=== PATIENT | male | born 1965 | race Caucasian/White ===

== ENCOUNTER 2018-04-11 23:04 | Emergency (ER) | payer BC ==
[2018-04-11] MEDS ORDERED: SODIUM CHLORIDE 1,000 ML IV STA (23:09)
[2018-04-11] MEDS ORDERED: ONDANSETRON 4 MG/2 ML VIAL IVPB ONE (23:09)
[2018-04-11] MEDS ORDERED: ACETAMINOPHEN 1000 MG/100 ML VIAL (NON FORMULARY) IVPB ONE (23:09)
[2018-04-11] MEDS ORDERED: PANTOPRAZOLE SODIUM 40 MG in SODIUM CHLORIDE 100 ML IVPB ONE (23:09)
[2018-04-11 23:20] VITALS: BP 127/77; PULSE 82; TEMP 97.6; BMI 29.7
[2018-04-11] MEDS ORDERED: ACETAMINOPHEN INJECTION 100 ML IVPB ONE (23:21)
[2018-04-11] MEDS ORDERED: ONDANSETRON 4 MG/2 ML VIAL ONE (23:22)
[2018-04-11] MEDS ORDERED: PANTOPRAZOLE SODIUM 40 MG VIAL ONE (23:22)
[2018-04-11 23:28] LABS: HEMATOCRIT 48.2 % (35.4-49); HEMOGLOBIN 16.2 GM/dl (11.7-16.9); MCH 30.7 pg (25.7-33.7); MCHC 33.6 g/dl (32.0-35.9); MEAN CELL VOLUME 91.5 fl (80-96); MEAN PLT VOLUME 7.4 fl (7.5-11.1); PLATELET COUNT 305 K/MM3 (134-434); RBC 5.26 M/mm3 (4.00-5.60); RDW 12.8 % (11.9-15.9); WHITE BLOOD COUNT 14.6 K/mm3 (4.0-10.8)
--- NOTE | 2018-04-11 23:30 | PDOC ---
History of Present Illness - General Chief Complaint: Pain, Acute Stated Complaint: UPPER ABDOMINAL PAIN Time Seen by Provider: 04/11/18 23:08 - History of Present Illness Initial Comments: 04/11/18 23:28 The patient is a 53 year old male, with no significant past medical history who presents to the emergency department with epigastric abdominal pain which began 2 hours prior to his arrival to the ED. The patient reports non-radiating pain that is constant. He notes the pain started after eating nachos and having 4 beers. Endorses vomiting 3x, nonbloody. The patient denies diarrhea, constipation or back pain. The patient denies fevers or chills. Allergies: NKDA Past surgical history: None reported Social history: Occasional drinker. No tobacco use. PCP: Dr. Burrows Past History - Past Medical History Allergies/Adverse Reactions: Allergies Allergy/AdvReac Type Severity Reaction Status Date / Time No Known Allergies Allergy Verified 04/11/18 23:05 Home Medications: Ambulatory Orders Esomeprazole Magnesium [Nexium 24Hr] 22.3 mg PO DAILY #7 capsule. 04/12/18 COPD: No Other medical history: DENIES - Suicide/Smoking/Psychosocial Hx Smoking Status: No Smoking History: Never smoked Have you smoked in the past 12 months: No Number of Cigarettes Smoked Daily: 0 Cigars Per Day: 0 Information on smoking cessation initiated: No Hx Alcohol Use: Yes Drug/Substance Use Hx: No Review of Systems - Review of Systems Comments:: 04/11/18 23:29 "GENERAL/CONSTITUTIONAL: No fever or chills. No weakness. HEAD, EYES, EARS, NOSE AND THROAT: No change in vision. No ear pain or discharge. No sore throat. CARDIOVASCULAR: No chest pain, no shortness of breath, no loss of consciousness RESPIRATORY: No cough, wheezing, or hemoptysis. GASTROINTESTINAL: +epigastric pain, + nausea, vomiting, no diarrhea or constipation. GENITOURINARY: No dysuria, frequency, or change in urination. MUSCULOSKELETAL: No joint or muscle swelling or pain. No neck or back pain. SKIN: No rash NEUROLOGIC: No vertigo, no change in strength/sensation. ENDOCRINE: No increased thirst. No abnormal weight change. HEMATOLOGIC/LYMPHATIC: No anemia, easy bleeding, or history of blood clots. ALLERGIC/IMMUNOLOGIC: No hives or skin allergy. *Physical Exam - Vital Signs Last Vital Signs Temp Pulse Resp BP Pulse Ox 97.6 F 82 16 127/77 99 04/11/18 23:07 04/11/18 23:07 04/11/18 23:07 04/11/18 23:07 04/11/18 23:07 - Physical Exam Comments: 04/11/18 23:29 "GENERAL: Awake, alert, and fully oriented, in no acute distress. HEAD: No signs of trauma EYES: PERRLA, EOMI, sclera anicteric, conjunctiva clear ENT: Auricles normal inspection, hearing grossly normal, nares patent, oropharynx clear without exudates. Moist mucosa NECK: Nontender, no stepoffs, Normal ROM, supple, no lymphadenopathy, JVD, or masses LUNGS: Breath sounds equal, clear to auscultation bilaterally. No wheezes, and no crackles HEART: Regular rate and rhythm, normal S1 and S2, no murmurs, rubs or gallops ABDOMEN: + epigastric tenderness, negative meng's, normoactive bowel sounds. No guarding, no rebound. No masses EXTREMITIES: Normal range of motion, no edema. No clubbing or cyanosis. No cords, erythema, or tenderness NEUROLOGICAL: Cranial nerves II through XII intact. 5/5 strength and sensation in all extremities, Normal speech, normal gait, normal cerebellar function SKIN: Warm, Dry, normal turgor, no rashes or lesions noted. Moderate Sedation - Procedure Monitoring Vital Signs: Procedure Monitoring Vital Signs Temperature 97.6 F 04/11/18 23:07 Pulse Rate 82 04/11/18 23:07 Respiratory Rate 16 04/11/18 23:07 Blood Pressure 127/77 04/11/18 23:07 O2 Sat by Pulse Oximetry (%) 99 04/11/18 23:07 ED Treatment Course - LABORATORY CBC & Chemistry Diagram: 04/11/18 23:15 04/11/18 23:15 Medical Decision Making - Medical Decision Making 04/11/18 23:26 53 M with epigastric pain, N+V after eating nachos and drinking 4 beers. Likely gastritis vs pancreatitis. Pt with negative meng's. No lower abdominal tenderness to suggest appy/colitis/diverticulitis. - Labs, lipase - IVF, GI cocktail 04/12/18 01:09 Labs notable for slight leukocytosis with left shift, otherwise unremarkable. Lipase negative Pt reassessed s/p GI cocktail - now has significant improvement in pain. Repeat abdominal exam now benign. Suspect gastritis Pt is well appearing, with normal vitals. Clinically stable for DC at this time. I discussed the physical exam findings, ancillary test results and final diagnoses with the patient. I answered all of the patient's questions. The patient was satisfied with the care received and felt comfortable with the discharge plan and treatment plan. The patient agrees to follow up with the primary care physician within 24-72 hours. *DC/Admit/Observation/Transfer Diagnosis at time of Disposition: Gastritis - Discharge Dispostion Disposition: HOME Condition at time of disposition: Stable - Referrals Referrals: Keily Pittman DO [Staff Physician] - - Patient Instructions Printed Discharge Instructions: DI for Gastritis Additional Instructions: Your abdominal pain today was likely due to gastritis. Take the nexium as prescribed to help alleviate your symptoms. If you experience worsening pain, vomiting, fevers, or any other concerning symptoms, return to the ER immediately. Otherwise, follow up with a conductor road freight. You may need an endoscopy to evaluate for stomach ulcers. Call the number provided to make an appointment. - Post Discharge Activity - Attestations Physician Attestion: 04/12/18 01:12 I, Dr. Miguel Doran MD, attest that this document has been prepared under my direction and personally reviewed by me in its entirety. I further attest, that it accurately reflects all work, treatment, procedures and medical decision -making performed by me.
[2018-04-11 23:40] LABS: PLATELET ESTIMATE ADEQUATE
[2018-04-11 23:41] LABS: ALBUMIN 4.9 g/dl (3.4-5.0); ALK PHOS 76 U/L (45-117); ANION GAP 9 MMOL/L (8-16); BILIRUBIN,TOTAL 0.6 mg/dl (0.2-1); BLOOD UREA NITROGEN 17 mg/dl (7-18); CALCIUM 9.3 mg/dl (8.5-10); CHLORIDE 104 mmol/L (98-107); CO2 25 mmol/L (21-32); CREATININE 0.9 mg/dl (0.55-1.3); GLUCOSE,RANDOM 117 mg/dl (74-106); POTASSIUM 3.8 mmol/L (3.5-5.1); SGOT/AST 28 U/L (15-37); SGPT/ALT 45 U/L (13-61); SODIUM 138 mmol/L (136-145); TOT PROT 8.1 g/dl (6.4-8.2)
[2018-04-12 00:58] LABS: LIPASE 232 U/L (73-393)
== END 2018-04-12 01:15 | disposition home or self-care (01) ==
LOC: FER 23:04
PROC: 3E033NZ Introduction of Analgesics, Hypnotics, Sedatives into Peripheral Vein, Percutaneous Approach (ICD-10-PCS; principal; 2018-04-11)
PROC: 3E0337Z Introduction of Electrolytic and Water Balance Substance into Peripheral Vein, Percutaneous Approach (ICD-10-PCS; 2018-04-11)
PROC: 3E033GC Introduction of Other Therapeutic Substance into Peripheral Vein, Percutaneous Approach (ICD-10-PCS; 2018-04-11)
DX: K29.70 Gastritis, unspecified, without bleeding (principal)
CPT/HCPCS: 36415; 80053; 82550; 82553; 83690; 84484; 85025; 99281-25; J0131; J7030

== ENCOUNTER 2020-03-20 07:40 | Day surgery (SDC) | payer BC ==
[2020-03-17 12:52] VITALS: BMI 29.0
[~2020-03-20 07:40] MED LIST: BUPIVACAINE HCL/PF 0.25% (2.5MG/ML) 10 ML VIAL IJ ONE
[2020-03-20] MEDS ORDERED: BUPIVACAINE HCL/PF 2.5 MG/ML - 30 ML VIAL IJ ONE (09:30)
[2020-03-20] MEDS ORDERED: LIDOCAINE HCL 2% 100 MG/5 ML DISP.SYRIN ONE (09:37)
[2020-03-20] MEDS ORDERED: LIDOCAINE HCL 2% JELLY (5 ML/TUBE) ONE (09:37)
[2020-03-20] MEDS ORDERED: PROPOFOL 20 ML ONE (09:38)
[2020-03-20] MEDS ORDERED: MIDAZOLAM HCL 2 MG/2 ML SINGLE DOSE VIAL ONE (09:38)
[2020-03-20] MEDS ORDERED: ceFAZolin SODIUM 1 GM VIAL ONE (10:22)
[2020-03-20] MEDS ORDERED: KETOROLAC TROMETHAMINE 30 MG/1 ML VIAL ONE (10:22)
[2020-03-20] MEDS ORDERED: ONDANSETRON 4 MG/2 ML VIAL ONE (10:22)
[2020-03-20] MEDS ORDERED: DEXAMETHASONE SOD PHOSPHATE 4 MG/1 ML VIAL ONE (10:22)
[2020-03-20] MEDS ORDERED: BUPIVACAINE HCL/PF 0.25% (2.5MG/ML) 10 ML VIAL IJ ONE (10:34)
[2020-03-20] MEDS ORDERED: oxyCODONE HCL 5 MG TABLET PO PRN ×2 (10:47)
[2020-03-20] MEDS ORDERED: PROMETHAZINE HCL 25 MG/1 ML VIAL IVPUSH PRN (10:47)
[2020-03-20] MEDS ORDERED: ONDANSETRON 4 MG/2 ML VIAL IVPUSH PRN (10:47)
[2020-03-20 11:30] VITALS: TEMP 97.8
[2020-03-20 12:04] VITALS: BP 134/75; PULSE 75
== END 2020-03-20 12:24 | disposition home or self-care (01) ==
LOC: FASU 07:40
PROVIDERS: ATTEND Orthopaedic Surgery
PROC: 0SBD4ZZ Excision of Left Knee Joint, Percutaneous Endoscopic Approach (ICD-10-PCS; 2020-03-20)
PROC: 0SBD4ZZ Excision of Left Knee Joint, Percutaneous Endoscopic Approach (ICD-10-PCS; 2020-03-20)
PROC: 0SBD4ZZ Excision of Left Knee Joint, Percutaneous Endoscopic Approach (ICD-10-PCS; principal; 2020-03-20 10:12)
DX: S83.242A Other tear of medial meniscus, current injury, left knee, initial encounter (principal); S83.282A Other tear of lateral meniscus, current injury, left knee, initial encounter; S83.8X2A Sprain of other specified parts of left knee, initial encounter; M65.862 Other synovitis and tenosynovitis, left lower leg; X58.XXXA Exposure to other specified factors, initial encounter; Y93.9 Activity, unspecified; Y92.9 Unspecified place or not applicable
CPT/HCPCS: 88304-TC; 94760

== ENCOUNTER 2022-05-09 18:33 | Emergency (ER) | payer BC ==
[2022-05-09 18:46] VITALS: BP 133/82; PULSE 78; RESP 15; TEMP 97.9; BMI 29.0
[2022-05-09] MEDS ORDERED: DIPHTH,PERTUSS(ACELL),TET 0.5 ML DISP.SYRIN IM ONE ×2 (20:08→20:10)
== END 2022-05-09 20:17 | disposition home or self-care (01) ==
LOC: FER 18:33
PROC: 0HQ1XZZ Repair Face Skin, External Approach (ICD-10-PCS; principal; 2022-05-09)
PROC: 3E0234Z Introduction of Serum, Toxoid and Vaccine into Muscle, Percutaneous Approach (ICD-10-PCS; 2022-05-09)
DX: S01.112A Laceration without foreign body of left eyelid and periocular area, initial encounter (principal); W21.03XA Struck by baseball, initial encounter
CPT/HCPCS: 90715; 99282-25